=== PATIENT | male | born 1970 | race Caucasian/White ===

== ENCOUNTER 2017-11-08 14:51 | Emergency (ER) | payer SELFPAY ==
--- NOTE | 2017-11-08 14:55 | EDPHY ---
H & P Time Seen by Provider: 11/08/17 14:55 HPI/ROS: CHIEF COMPLAINT: Seizure HISTORY OF PRESENT ILLNESS: The patient presents to the ED after likely alcohol withdrawal seizure. The patient reports he has a withdrawal seizure approximately once every for 3 months. The patient has been cutting back on his alcohol recently. He seized while at work. The patient denies any traumatic injury. The patient denies incontinence or tongue bite. The patient takes no anti seizure medications or regular medications. The patient denies any recent fever, cough, congestion, fever or complaints of acute pain. REVIEW OF SYSTEMS: A comprehensive 10 point review of systems is otherwise negative aside from elements mentioned in the history of present illness. Source: Patient Exam Limitations: No limitations - Medical/Surgical History Hx Asthma: No Hx Chronic Respiratory Disease: No Hx Diabetes: No Hx Cardiac Disease: No Hx Renal Disease: No Hx Cirrhosis: No Hx Alcoholism: No Hx HIV/AIDS: No Hx Splenectomy or Spleen Trauma: No Other PMH: states previous seizures, previous etoh withdrawl - Social History Smoking Status: Current every day smoker - Physical Exam Exam: General Appearance: Alert, tremulous, no acute distress Eyes: Pupils equal and round no pallor or injection ENT, Mouth: Poor dentition, no obvious intraoral laceration Respiratory: There are no retractions, lungs are clear to auscultation Cardiovascular: Tachycardic Gastrointestinal: Abdomen is soft and nontender, no masses, bowel sounds normal Neurological: A&O, normal motor function, normal sensory exam, normal cranial nerves Skin: Warm and dry, no rashes Musculoskeletal: Neck is supple nontender Extremities: symmetrical, full range of motion Psychiatric: Patient is oriented X 3, there is no agitation Constitutional: Initial Vital Signs Temperature (C) 37 C 11/08/17 14:53 Heart Rate 105 H 11/08/17 14:53 Respiratory Rate 18 11/08/17 14:53 Blood Pressure 156/116 H 11/08/17 14:53 O2 Sat (%) 93 11/08/17 14:53 O2 Delivery Mode Room Air Allergies/Adverse Reactions: No Known Allergies Allergy (Unverified 06/05/15 09:46) Home Medications: Medication Instructions Recorded NK [No Known Home Meds] 06/05/15 Medical Decision Making ED Course/Re-evaluation: The patient presents to the ED with a recurrent alcohol withdrawal seizure. The patient presents to the ED with symptoms of mild alcohol withdrawal. The patient was treated with IV Ativan in the emergency department. No further seizure activity was observed. The patient underwent serial examinations by myself over a 2 hr period. At 5:00 p.m. The patient is sleeping comfortably in the room. Patient was [facility] however has declined. The patient is requesting that he be discharged home with his friend. The patient is a competent decision maker. He has been informed and ongoing abuse of alcohol continues to put him at risk for seizures. The patient will be discharged home under the care of his friend Nahun. He has been provided outpatient resources with our on-call neurologist and the [facility] if he desires assistance with his alcohol dependence or treatment for alcohol withdrawal. The patient will be discharged home with customary aftercare instructions and return precautions. Differential Diagnosis: Differential diagnosis considered includes alcohol withdrawal syndrome, alcohol withdrawal seizure, dehydration, metabolic abnormality, traumatic injury - Data Points Laboratory Results: Laboratory Results 11/08/17 14:50 11/08/17 14:50 11/08/17 11/08/17 14:50 14:50 WBC 7.35 10^3/uL 10^3/uL (3.80-9.50) RBC 3.66 10^6/uL L 10^6/uL (4.40-6.38) Hgb 12.9 g/dL L g/dL (13.7-17.5) Hct 36.9 % L % (40.0-51.0) MCV 100.8 fL H fL (81.5-99.8) MCH 35.2 pg H pg (27.9-34.1) MCHC 35.0 g/dL g/dL (32.4-36.7) RDW 15.4 % H % (11.5-15.2) Plt Count 169 10^3/uL 10^3/uL (150-400) MPV 11.0 fL fL (8.7-11.7) Neut % (Auto) 58.3 % % (39.3-74.2) Lymph % (Auto) 23.0 % % (15.0-45.0) Monroe % (Auto) 15.5 % H % (4.5-13.0) Eos % (Auto) 0.7 % % (0.6-7.6) Baso % (Auto) 2.0 % H % (0.3-1.7) Nucleat RBC Rel Count 0.0 % % (0.0-0.2) Absolute Neuts (auto) 4.28 10^3/uL 10^3/uL (1.70-6.50) Absolute Lymphs (auto) 1.69 10^3/uL 10^3/uL (1.00-3.00) Absolute Monos (auto) 1.14 10^3/uL H 10^3/uL (0.30-0.80) Absolute Eos (auto) 0.05 10^3/uL 10^3/uL (0.03-0.40) Absolute Basos (auto) 0.15 10^3/uL H 10^3/uL (0.02-0.10) Absolute Nucleated RBC 0.00 10^3/uL 10^3/uL (0-0.01) Immature Gran % 0.5 % % (0.0-1.1) Immature Gran # 0.04 10^3/uL 10^3/uL (0.00-0.10) Sodium 137 mEq/L mEq/L (135-145) Potassium 3.5 mEq/L mEq/L (3.3-5.0) Chloride 98 mEq/L mEq/L (97-110) Carbon Dioxide 14 mEq/l L mEq/l (22-31) Anion Gap 25 mEq/L H mEq/L (8-16) BUN 9 mg/dL mg/dL (7-23) Creatinine 0.7 mg/dL mg/dL (0.7-1.3) Estimated GFR > 60 Glucose 139 mg/dL H mg/dL (70-100) Calcium 9.4 mg/dL mg/dL (8.5-10.4) Medications Given: Lorazepam (Ativan Injection) 0 mg IVP Q1H PRN; Protocol PRN Reason: Alcohol Withdrawal w/IV access Stop: 11/09/17 03:08 Last Admin: 11/08/17 15:22 Dose: 2 mg Departure - Departure Disposition: Home, Routine, Self-Care Clinical Impression: Seizure disorder, Alcohol withdrawal Condition: Good Instructions: Alcohol Withdrawal (ED) Additional Instructions: 1. No driving, dangerous activities such as riding a ski lift, swimming in a pool or other behavior that could put you or someone else at risk in the event of a recurrent seizure. You will need to be cleared by a neurologist to resume these activities. 2. Please return to the ED for recurrent seizure, headache, numbness, weakness, altered mental status or other concerns. 3. Please follow up with neurologist you have been referred to this week to schedule a follow-up appointment. 4. You have been offered transfer [facility] and declined. They are open 24 hr day few desire treatment for alcohol withdrawal and assistance with your alcohol dependence. Referrals: Austen Monroe MD [Medical Doctor] - As per Instructions [facility] Hours [Outside] - As per Instructions
[2017-11-08 15:08] LABS: PLATELET COUNT 169 10^3/uL (150-400)
[2017-11-08] MEDS ORDERED: LORazepam 1 MG TAB PO PRN (15:08)
[2017-11-08] MEDS ORDERED: LORazepam 2 MG/ML INJ IVP PRN (15:08)
[2017-11-08 17:55] VITALS: BP 150/102
== END 2017-11-08 17:54 | disposition home or self-care (01) ==
LOC: EDUNIT# → EDBD
DX: R56.9 Unspecified convulsions (principal); F10.239 Alcohol dependence with withdrawal, unspecified; F17.200 Nicotine dependence, unspecified, uncomplicated
CPT/HCPCS: 96374; J2060